=== PATIENT | female | born 1935 | race Asian ===

== ENCOUNTER 2023-07-06 16:12 | Inpatient (IN) | payer MEDICARE ==
[~2023-07-06] VITALS: Ht 152.4 cm; Wt 45.4 kg
[2023-07-06 17:18] LABS: BASOPHILS # (AUTO) 0.1 K/uL (0.0-0.2); BASOPHILS % (AUTO) 0.6 % (0.0-2.0); EOSINOPHILS % (AUTO) 0.2 % (0.0-6.0); HEMATOCRIT 28 % (33-45); HEMOGLOBIN 8.6 g/dL (11.5-14.8); LYMPHOCYTES # (AUTO) 0.9 K/uL (0.8-4.8); MEAN CORPUSCULAR HEMOGLOBIN 29 PG (26.0-33.0); MEAN CORPUSCULAR HGB CONC 30 g/dl (31.0-36.0); MEAN CORPUSCULAR VOLUME 94 fL (82-100); MONOCYTES # (AUTO) 0.5 K/uL (0.1-1.30); MONOCYTES % (AUTO) 4.2 % (2.0-12.0); PLATELET COUNT (AUTO) 148 K/uL (150-450); RED CELL DISTRIBUTION WIDTH 23.4 % (11.5-15.0); WHITE BLOOD COUNT (AUTO) 12.5 K/uL (4.3-11.0)
[2023-07-06 17:42] LABS: INR 1.56 (0.91-1.10); PARTIAL THROMBOPLASTIN TIME 47.9 SEC (24.3-34.3); PROTHROMBIN TIME 16.1 SECS (9.2-11.1)
[2023-07-06 17:48] LABS: CALCIUM, SERUM 8.8 mg/dL (8.5-10.1); CARBON DIOXIDE 24 mmol/L (21-32); CHLORIDE 102 mmol/L (98-107); CREATININE 2.6 mg/dL (0.6-1.3); GLUCOSE 159 mg/dL (74-106); SODIUM SERUM 139 mmol/L (136-145); UREA NITROGEN, BLOOD 22 mg/dL (7-18)
[2023-07-06 18:17] LABS: POTASSIUM 2.4 mmol/L (3.5-5.1)
[2023-07-06] MEDS ORDERED: PIPERACILLIN /TAZOBACTAM 3.375 G in IV D5W 50 ML IV ONE (18:30)
[2023-07-06] MEDS ORDERED: PIPERACI/TAZO 3.375GM/D5W 50ML PB IV ONE (19:26)
[2023-07-06] MEDS ORDERED: IV NS 0.9% 1,000 ML BAG IV ONE (20:00)
[2023-07-06] MEDS ORDERED: Magnesium 1 GM/2 ML VIAL IV ONE (20:00)
[2023-07-06] MEDS ORDERED: Magnesium 1GM/D5W 100ML PREMIX 100 ML IV ONE (20:43)
[2023-07-06] MEDS ORDERED: METO5TAB2 PO (20:48)
[2023-07-06] MEDS ORDERED: APIX2.5T PO (20:48)
[2023-07-06] MEDS ORDERED: METO25TA4 PO (20:48)
[2023-07-06] MEDS ORDERED: FURO20TA4 PO (20:48)
[2023-07-06] MEDS ORDERED: LEVO100T9 PO (20:48)
[2023-07-06] MEDS ORDERED: AMIO200T5 PO (20:48)
[2023-07-06] MEDS ORDERED: MELA3TAB41 PO (20:48)
[2023-07-06] MEDS ORDERED: HYDR-4303 PO (20:48)
[2023-07-06] MEDS ORDERED: NIFE-34 PO (20:48)
[2023-07-06] MEDS ORDERED: PANT40TA2 PO (20:48)
[2023-07-06] MEDS ORDERED: HYDR-4076 PO (20:48)
[2023-07-06] MEDS ORDERED: FLUC200T PO (20:48)
[2023-07-06] MEDS ORDERED: POTASSIUM CL. PREMIX PERIPHER. 50 ML IV SCH (21:30)
[2023-07-06] MEDS ORDERED: POTASSIUM CHLORIDE 20 MEQ TAB.PRT.SR PO ONE ×2 (21:30→21:42)
[2023-07-06 22:09] LABS: APPEARANCE,URINE TURBID (CLEAR); BILIRUBIN,URINE NEGATIVE (NEGATIVE); BLOOD, URINE 2+ Ery/uL (NEGATIVE); COLOR,URINE YELLOW (YELLOW); KETONES,URINE NEGATIVE (NEGATIVE); LEUKOCYTE ESTERASE ,URINE 2+ (NEGATIVE); NITRITE, URINE NEGATIVE (NEGATIVE); PROTEIN,URINE 3+ mg/dl (NEGATIVE); UGLUCOSE NEGATIVE (NEGATIVE); UROBILINOGEN,URINE 0.2 EU/dL (0.2)
[2023-07-06 22:13] LABS: ADD URINE CULTURE YES; BACTERIA,URINE Many /HPF (None Seen); RBC,URINE 51-80 /HPF (0-2); WBC,URINE 51-80 /HPF (0-3); YEAST,URINE Many /HPF (None Seen)
[2023-07-06 22:14] LABS: SQUAMOUS EPITHELIAL CELL,UR Moderate /HPF (None Seen)
[2023-07-07 00:58] VITALS: BP 139/58; TEMP 97.5; O2SAT 96
[2023-07-07 04:00] VITALS: BP 126/53; TEMP 98.4; O2SAT 99
[2023-07-07 08:00] VITALS: BP 150/64; TEMP 98.4; O2SAT 99
[2023-07-07 08:17] LABS: BASOPHILS # (AUTO) 0.1 K/uL (0.0-0.2); BASOPHILS % (AUTO) 0.5 % (0.0-2.0); EOSINOPHILS # (AUTO) 0.1 K/uL (0.0-0.7); EOSINOPHILS % (AUTO) 0.3 % (0.0-6.0); HEMATOCRIT 29 % (33-45); HEMOGLOBIN 9.2 g/dL (11.5-14.8); LYMPHOCYTES # (AUTO) 1.4 K/uL (0.8-4.8); MEAN CORPUSCULAR HEMOGLOBIN 29 PG (26.0-33.0); MEAN CORPUSCULAR HGB CONC 31 g/dl (31.0-36.0); MEAN CORPUSCULAR VOLUME 93 fL (82-100); MONOCYTES # (AUTO) 0.6 K/uL (0.1-1.30); MONOCYTES % (AUTO) 4.1 % (2.0-12.0); NEUTROPHILS # (AUTO) 13.4 K/uL (1.8-8.9); NEUTROPHILS % (AUTO) 86.1 % (43.0-81.0); PLATELET COUNT (AUTO) 149 K/uL (150-450); RED BLOOD CELL COUNT(AUTO) 3.17 MIL/uL (4.0-5.2); RED CELL DISTRIBUTION WIDTH 23.1 % (11.5-15.0); WHITE BLOOD COUNT (AUTO) 15.6 K/uL (4.3-11.0)
[2023-07-07 08:18] LABS: CALCIUM, SERUM 9.6 mg/dL (8.5-10.1); CARBON DIOXIDE 26 mmol/L (21-32); CHLORIDE 102 mmol/L (98-107); GLUCOSE 88 mg/dL (74-106); SODIUM SERUM 140 mmol/L (136-145); UREA NITROGEN, BLOOD 24 mg/dL (7-18)
[2023-07-07 08:26] LABS: POTASSIUM 2.4 mmol/L (3.5-5.1)
[2023-07-07] MEDS ORDERED: VANC500P5 IV (08:26)
[2023-07-07] MEDS ORDERED: SODI1TAB66 PO (08:26)
[2023-07-07] MEDS ORDERED: OMEG1CAP40 PO (08:26)
[2023-07-07] MEDS ORDERED: FURO-145 PO (08:26)
[2023-07-07] MEDS ORDERED: SENN-261 PO (08:26)
[2023-07-07] MEDS ORDERED: METR-147 PO (08:26)
[2023-07-07] MEDS ORDERED: FOLI0.8T2 PO (08:26)
[2023-07-07] MEDS ORDERED: DOCU-141 PO (08:26)
[2023-07-07] MEDS ORDERED: NA P133E RC (08:26)
[2023-07-07] MEDS ORDERED: LACT10SO3 PO (08:26)
[2023-07-07] MEDS ORDERED: LEVO100T9 PO (08:26)
[2023-07-07] MEDS ORDERED: METO-295 PO (08:26)
[2023-07-07] MEDS ORDERED: ACET-868 PO (08:26)
[2023-07-07] MEDS ORDERED: SEVE800T8 PO (08:26)
[2023-07-07] MEDS ORDERED: CRAN425C6 PO (08:26)
[2023-07-07] MEDS ORDERED: BISA10SU11 RC (08:26)
[2023-07-07] MEDS ORDERED: ACET-2605 PO (08:26)
[2023-07-07] MEDS ORDERED: APIX2.5T PO (08:26)
[2023-07-07] MEDS ORDERED: POTASSIUM CHLORIDE 20 MEQ TAB.PRT.SR PO ONE (09:00)
[2023-07-07] MEDS ORDERED: ACETAMINOPHEN 650 MG/20.3 ML UDC NG PRN (09:00)
[2023-07-07] MEDS: POTASSIUM CL. PREMIX PERIPHER. 50 ML IV SCH ×4 (09:14→16:21)
[2023-07-07] MEDS: PIPERACILLIN /TAZOBACTAM 2.25 G in IV D5W 50 ML IV SCH ×2 (11:37→17:56)
[2023-07-07 12:00] VITALS: BP 131/56; TEMP 97.5; O2SAT 99
[2023-07-07] MEDS ORDERED: PIPERACILLIN /TAZOBACTAM 3.375 G in IV D5W 50 ML IV SCH (12:00)
[2023-07-07 14:50] LABS: CALCIUM, SERUM 9.8 mg/dL (8.5-10.1); CARBON DIOXIDE 24 mmol/L (21-32); CHLORIDE 104 mmol/L (98-107); CREATININE 3.4 mg/dL (0.6-1.3); GLUCOSE 127 mg/dL (74-106); POTASSIUM 3.1 mmol/L (3.5-5.1); SODIUM SERUM 138 mmol/L (136-145); UREA NITROGEN, BLOOD 26 mg/dL (7-18)
[2023-07-07 16:00] VITALS: BP 150/58; TEMP 97.3; O2SAT 99
[2023-07-07 20:00] VITALS: BP 131/72; TEMP 99.1; O2SAT 93
[2023-07-08] VITALS: BP 126/58; TEMP 99.4; O2SAT 93
[2023-07-08] MEDS: PIPERACILLIN /TAZOBACTAM 2.25 G in IV D5W 50 ML IV SCH ×3 (02:57→18:16)
[2023-07-08 04:00] VITALS: BP 130/56; TEMP 99; O2SAT 100
[2023-07-08 05:48] LABS: BASOPHILS % (AUTO) 0.1 % (0.0-2.0); EOSINOPHILS % (AUTO) 0.1 % (0.0-6.0); HEMATOCRIT 25 % (33-45); HEMOGLOBIN 7.9 g/dL (11.5-14.8); LYMPHOCYTES % (AUTO) 7.7 % (20.0-44.0); MEAN CORPUSCULAR HEMOGLOBIN 29 PG (26.0-33.0); MEAN CORPUSCULAR HGB CONC 32 g/dl (31.0-36.0); MEAN CORPUSCULAR VOLUME 92 fL (82-100); MONOCYTES # (AUTO) 0.6 K/uL (0.1-1.30); MONOCYTES % (AUTO) 4.8 % (2.0-12.0); NEUTROPHILS # (AUTO) 11.3 K/uL (1.8-8.9); NEUTROPHILS % (AUTO) 87.3 % (43.0-81.0); PLATELET COUNT (AUTO) 118 K/uL (150-450); RED BLOOD CELL COUNT(AUTO) 2.73 MIL/uL (4.0-5.2); RED CELL DISTRIBUTION WIDTH 22.9 % (11.5-15.0); WHITE BLOOD COUNT (AUTO) 12.9 K/uL (4.3-11.0)
[2023-07-08 06:13] LABS: ALANINE AMINOTRANSFERASE 58 U/L (12-78); ALKALINE PHOSPHATASE 284 U/L (46-116); ASPARTATE AMINOTRANSFERASE 62 U/L (15-37); BILIRUBIN,TOTAL 0.7 mg/dL (0.2-1.0); CALCIUM, SERUM 9.7 mg/dL (8.5-10.1); CARBON DIOXIDE 27 mmol/L (21-32); CHLORIDE 106 mmol/L (98-107); CREATININE 2.3 mg/dL (0.6-1.3); GLUCOSE 97 mg/dL (74-106); PHOSPHORUS 1.9 mg/dL (2.5-4.9); POTASSIUM 2.9 mmol/L (3.5-5.1); SODIUM SERUM 141 mmol/L (136-145); TOTAL PROTEIN, SERUM 5.3 g/dL (6.4-8.2); UREA NITROGEN, BLOOD 14 mg/dL (7-18)
[2023-07-08 06:22] LABS: IRON, SERUM 26 ug/dl (50-175); THYROID STIMULATING HORMONE 37.294 uIU/mL (0.358-3.74)
[2023-07-08 07:29] LABS: ALBUMIN 1.1 g/dL (3.4-5.0)
[2023-07-08 08:00] VITALS: BP 162/64; TEMP 97.9; O2SAT 100
[2023-07-08] MEDS ORDERED: POTASSIUM CHLORIDE 20 MEQ TAB.PRT.SR PO ONE ×2 (09:00)
[2023-07-08 09:44] LABS: HEMOGLOBIN 8.9 g/dL (11.5-14.8)
[2023-07-08] MEDS ORDERED: NEUTRA PHOS 1 POWD.PACKET PO ONE (11:30)
[2023-07-08 12:00] VITALS: BP 149/69; TEMP 97.8; O2SAT 100
[2023-07-08] MEDS: SOD FERRIC GLUC 125 MG in IV NS 0.9% 100 ML IV SCH (14:44)
[2023-07-08] MEDS ORDERED: NEPRO VAN 237 ML CAN PO PRN (15:00)
[2023-07-08 15:07] LABS: HEMOGLOBIN 9.6 g/dL (11.5-14.8)
[2023-07-08 16:00] VITALS: BP 159/67; TEMP 97.6
[2023-07-08 20:00] VITALS: BP 131/68; TEMP 98.4; O2SAT 98
[2023-07-08 21:09] LABS: HEMOGLOBIN 9.8 g/dL (11.5-14.8)
[2023-07-08] MEDS: MUPIROCIN OINT 2% 22 GM TUBE NS SCH (21:15)
[2023-07-09] VITALS: BP 100/65; TEMP 99.1; O2SAT 99
[2023-07-09] MEDS: PIPERACILLIN /TAZOBACTAM 2.25 G in IV D5W 50 ML IV SCH ×3 (02:36→18:20)
[2023-07-09 03:37] LABS: HEMOGLOBIN 8.6 g/dL (11.5-14.8)
[2023-07-09 03:49] LABS: CALCIUM, SERUM 10.1 mg/dL (8.5-10.1); CARBON DIOXIDE 24 mmol/L (21-32); CHLORIDE 109 mmol/L (98-107); CREATININE 1.8 mg/dL (0.6-1.3); GLUCOSE 69 mg/dL (74-106); MAGNESIUM 1.9 mg/dL (1.8-2.4); POTASSIUM 4.5 mmol/L (3.5-5.1); SODIUM SERUM 141 mmol/L (136-145); UREA NITROGEN, BLOOD 7 mg/dL (7-18)
[2023-07-09 04:00] VITALS: BP 157/68; TEMP 98.2
[2023-07-09 08:00] VITALS: BP 155/77; TEMP 97.5; O2SAT 98
[2023-07-09] MEDS: VIT B CMPLX 3/FA/VIT C/BIOTIN 1 TAB TABLET PO SCH (08:37)
[2023-07-09] MEDS: MUPIROCIN OINT 2% 22 GM TUBE NS SCH ×2 (08:38→21:55)
[2023-07-09] MEDS ORDERED: PIPE2.257 IV (09:02)
[2023-07-09] MEDS ORDERED: FERR325T23 PO (09:07)
[2023-07-09 10:00] LABS: HEMOGLOBIN 9.5 g/dL (11.5-14.8)
[2023-07-09] MEDS ORDERED: NEUTRA PHOS 1 POWD.PACKET PO ONE (11:00)
[2023-07-09 11:07] LABS: HEPATITIS B SURFACE AB Reactive (.)
[2023-07-09 12:00] VITALS: BP 149/60; TEMP 97.6; O2SAT 98
[2023-07-09 14:40] LABS: HEMOGLOBIN 8.7 g/dL (11.5-14.8)
[2023-07-09] MEDS: SOD FERRIC GLUC 125 MG in IV NS 0.9% 100 ML IV SCH (15:01)
[2023-07-09 16:00] VITALS: BP 146/54; TEMP 97.2; O2SAT 100
[2023-07-09 20:00] VITALS: BP 147/54; TEMP 98.1; O2SAT 100
[2023-07-09 20:38] LABS: HEMOGLOBIN 8.3 g/dL (11.5-14.8)
[2023-07-10] VITALS (8 sets, daily range): BP systolic 74–159; BP diastolic 47–94; TEMP 96–98.9; O2SAT 94–100
[2023-07-10] MEDS: PIPERACILLIN /TAZOBACTAM 2.25 G in IV D5W 50 ML IV SCH ×2 (02:34→11:24)
[2023-07-10 08:05] LABS: BASOPHILS % (AUTO) 0.2 % (0.0-2.0); EOSINOPHILS % (AUTO) 0.2 % (0.0-6.0); HEMATOCRIT 29 % (33-45); HEMOGLOBIN 8.5 g/dL (11.5-14.8); LYMPHOCYTES # (AUTO) 2.1 K/uL (0.8-4.8); LYMPHOCYTES % (AUTO) 12.5 % (20.0-44.0); MEAN CORPUSCULAR HEMOGLOBIN 29 PG (26.0-33.0); MEAN CORPUSCULAR HGB CONC 30 g/dl (31.0-36.0); MEAN CORPUSCULAR VOLUME 99 fL (82-100); MONOCYTES # (AUTO) 0.7 K/uL (0.1-1.30); MONOCYTES % (AUTO) 4.2 % (2.0-12.0); NEUTROPHILS # (AUTO) 13.8 K/uL (1.8-8.9); NEUTROPHILS % (AUTO) 82.9 % (43.0-81.0); PLATELET COUNT (AUTO) 74 K/uL (150-450); RED BLOOD CELL COUNT(AUTO) 2.93 MIL/uL (4.0-5.2); RED CELL DISTRIBUTION WIDTH 25.1 % (11.5-15.0); WHITE BLOOD COUNT (AUTO) 16.7 K/uL (4.3-11.0)
[2023-07-10] MEDS ORDERED: DIGOXIN INJ 0.5 MG/2 ML AMPUL IV ONE (08:30)
[2023-07-10] MEDS ORDERED: IV NS 0.9% 500 ML IV ONE (08:30)
[2023-07-10 08:44] LABS: ALANINE AMINOTRANSFERASE 43 U/L (12-78); ALKALINE PHOSPHATASE 291 U/L (46-116); ASPARTATE AMINOTRANSFERASE 52 U/L (15-37); BILIRUBIN,TOTAL 0.9 mg/dL (0.2-1.0); CALCIUM, SERUM 11.6 mg/dL (8.5-10.1); CARBON DIOXIDE 22 mmol/L (21-32); CHLORIDE 109 mmol/L (98-107); CREATININE 2.8 mg/dL (0.6-1.3); GLUCOSE 74 mg/dL (74-106); MAGNESIUM 2.1 mg/dL (1.8-2.4); PHOSPHORUS 3.2 mg/dL (2.5-4.9); POTASSIUM 4.6 mmol/L (3.5-5.1); SODIUM SERUM 141 mmol/L (136-145); TOTAL PROTEIN, SERUM 5.5 g/dL (6.4-8.2); UREA NITROGEN, BLOOD 16 mg/dL (7-18)
[2023-07-10 08:52] LABS: ALBUMIN 1.1 g/dL (3.4-5.0)
[2023-07-10 09:33] LABS: HEMOGLOBIN 8.7 g/dL (11.5-14.8)
[2023-07-10] MEDS: MUPIROCIN OINT 2% 22 GM TUBE NS SCH (09:45)
[2023-07-10] MEDS: VIT B CMPLX 3/FA/VIT C/BIOTIN 1 TAB TABLET PO SCH (09:45)
[2023-07-10 10:56] LABS: ANISOCYTOSIS 1+; LYMPHOCYTES % (MANUAL) 9 % (16-48); MONOCYTES % (MANUAL) 3 % (0-11.0); NEUTROPHILS % (MANUAL) 88 (42-76); PLATELET ESTIMATE DECREASED
[2023-07-10 10:57] LABS: HYPOCHROMASIA 1+
[2023-07-10] MEDS ORDERED: ALBUMIN 25% 25 GM in PREMIX 1 EA IV PRN (11:30)
[2023-07-10] MEDS ORDERED: METOPROLOL TARTRATE 25 MG TABLET PO SCH (11:30)
[2023-07-10] MEDS ORDERED: LEVOTHYROXINE SODIUM 100 MCG TABLET PO SCH (11:30)
[2023-07-10] MEDS ORDERED: AMIODARONE HCL 200 MG TABLET PO SCH (12:00)
[2023-07-10] MEDS ORDERED: FLUCONAZOLE (100 MG) 100 MG TABLET PO SCH (12:00)
[2023-07-10] MEDS: SOD FERRIC GLUC 125 MG in IV NS 0.9% 100 ML IV SCH (17:12)
[2023-07-10 18:59] LABS: HEMOGLOBIN 8.6 g/dL (11.5-14.8)
== END 2023-07-10 19:20 | DRG 871 ==
LOC: ER 16:43 → TELE-TD 22:16 → TELE1 23:42
PROVIDERS: ADMIT Internal Medicine; ATTEND Internal Medicine
PROC: 5A1D70Z Performance of Urinary Filtration, Intermittent, Less than 6 Hours Per Day (ICD-10-PCS; principal; 2023-07-08)
DX: A41.9 Sepsis, unspecified organism (principal); G93.41 Metabolic encephalopathy; I21.A1 Myocardial infarction type 2; N18.6 End stage renal disease; N39.0 Urinary tract infection, site not specified; R18.8 Other ascites; I12.0 Hypertensive chronic kidney disease with stage 5 chronic kidney disease or end stage renal disease; J90 Pleural effusion, not elsewhere classified; J98.11 Atelectasis; I31.39 Other pericardial effusion (noninflammatory); D64.9 Anemia, unspecified; E87.6 Hypokalemia; K64.9 Unspecified hemorrhoids; Z20.822 Contact with and (suspected) exposure to COVID-19; E03.9 Hypothyroidism, unspecified; E88.09 Other disorders of plasma-protein metabolism, not elsewhere classified; I48.0 Paroxysmal atrial fibrillation; K21.9 Gastro-esophageal reflux disease without esophagitis; Z66 Do not resuscitate; Z79.01 Long term (current) use of anticoagulants; Z87.440 Personal history of urinary (tract) infections; I10 Essential (primary) hypertension; E11.9 Type 2 diabetes mellitus without complications; E11.22 Type 2 diabetes mellitus with diabetic chronic kidney disease; Z90.5 Acquired absence of kidney; Z99.2 Dependence on renal dialysis; L98.8 Other specified disorders of the skin and subcutaneous tissue; K62.3 Rectal prolapse; K76.89 Other specified diseases of liver; Z85.528 Personal history of other malignant neoplasm of kidney
CPT/HCPCS: 36415; 70450-TC; 71045-TC; 80048-TC; 80053-TC; 81001; 83540-TC; 83605-TC; 83735-TC; 84100-TC; 84443-TC; 84484-TC; 85025-TC; 85027-TC; 85730-TC; 86706; 86850-TC; 87040-TC; 87086-TC; 87340; 90935-TC; 92526; 92611-TC; 93307-TC; 94799-TC; 97110-TC; 97116-TC; 97530-TC; A4216; A4223; A6403; G0378; J1160; J2543; J2916; J3475; J3480; J7030; J7040; J7050; J7060; P9047